=== PATIENT | female | born 1985 | race Caucasian/White ===

== ENCOUNTER 2022-01-05 12:57 | Emergency (ER) | payer MEDICAID ==
[~2022-01-05] VITALS: Ht 165.1 cm; Wt 74.0 kg
[2022-01-05] MEDS ORDERED: MULT-622 PO (13:07)
[2022-01-05] MEDS ORDERED: THIA50TA12 PO (13:07)
[2022-01-05] MEDS ORDERED: QUET200T MT (13:07)
[2022-01-05] MEDS ORDERED: FOLI-43 MT (13:07)
[2022-01-05] MEDS ORDERED: GABA-532 PO (13:07)
[2022-01-05] MEDS ORDERED: ESCI10TA MT (13:07)
[2022-01-05 13:48] LABS: BASOPHILS % 1.1 % (0.0-2.0); EOSINOPHILS % 1.3 % (0.0-5.0); HEMATOCRIT. 38.6 % (36.0-48.0); HEMOGLOBIN. 13.2 g/dL (12.0-16.0); LYMPHOCYTES % 41.6 % (20.0-50.0); MEAN CORPUSCULAR HEMOGLOBIN 33.8 pg (28.0-32.0); MEAN CORPUSCULAR VOLUME 98.7 fL (81.0-99.0); MEAN PLATELET VOLUME 6.8 fl (7.4-10.4); MONOCYTES % 9.2 % (2.0-8.0); NEUTROPHILS % 46.8 % (40.0-76.0); PLATELET 192 x1000/uL (130-400); RED BLOOD CELL COUNT 3.91 mill/uL (4.2-5.4); RED CELL DISTRIBUTION WIDTH 17.9 % (11.6-14.6)
[2022-01-05 13:56] LABS: CHLORIDE 103 mEq/L (98-107)
[2022-01-05 16:09] VITALS: BP 114/68
[2022-01-05] MEDS ORDERED: LORAZEPAM 2MG/ML CPJ IM ONE (16:45)
== END 2022-01-05 17:02 ==
LOC: ER 12:57
DX: G40.909 Epilepsy, unspecified, not intractable, without status epilepticus (principal); F10.229 Alcohol dependence with intoxication, unspecified; F41.9 Anxiety disorder, unspecified; F32.9 Major depressive disorder, single episode, unspecified; F17.290 Nicotine dependence, other tobacco product, uncomplicated; Z79.899 Other long term (current) drug therapy
CPT/HCPCS: 36415; 80048; 85025; 96372; 99291; J2060